=== PATIENT | female | born 1970 | race African-American/Black ===

== ENCOUNTER 2021-01-27 16:47 | Emergency (ER) | payer SELFPAY ==
[~2021-01-27] VITALS: Ht 172.7 cm; Wt 111.0 kg
[2021-01-27 16:56] VITALS: BP 130/86
== END 2021-01-27 20:01 | disposition left against medical advice (07) ==
LOC: ER 16:47
DX: F41.9 Anxiety disorder, unspecified (principal); I10 Essential (primary) hypertension; E11.9 Type 2 diabetes mellitus without complications; M79.605 Pain in left leg; Z88.6 Allergy status to analgesic agent; Z98.890 Other specified postprocedural states; Z86.73 Personal history of transient ischemic attack (TIA), and cerebral infarction without residual deficits
CPT/HCPCS: 99281